=== PATIENT | female | born 1995 | race Two or more races ===

== ENCOUNTER 2023-03-08 23:04 | Emergency (ER) | payer MEDICAID, OTHER ==
[~2023-03-08] VITALS: Ht 165.1 cm; Wt 75.0 kg
[2023-03-08 23:45] LABS: Eosinophils # (auto) 0.2 10 ^3/uL (0-0.8); Hemoglobin 12.7 g/dL (12.2-16.2); Mean Corpuscular Hemoglobin 24.4 pg (28.0-32.0); Neutrophils # (auto) 5.5 10 ^3/uL (1.6-8.6); White Blood Cell 8.7 10^3/uL (4.4-10.8)
[2023-03-08 23:47] LABS: Basophils # (auto) 0 10 ^3/uL (0-0.2); Basophils % (auto) 0.5 % (0.0-2.0); Eosinophils % (auto) 2.5 % (0.0-7.0); Hematocrit 39.1 % (36.0-46.0); Lymphocytes # (auto) 2.3 10 ^3/uL (0.4-5.4); Lymphocytes % (auto) 26.8 % (10.0-50.0); Mean Corpuscular Hgb Conc. 32.5 g/dL (32.0-36.0); Mean Corpuscular Volume 75.1 fL (80.0-100.0); Monocytes # (auto) 0.6 10 ^3/uL (0-1.3); Monocytes % (auto) 6.9 % (0.0-12.0); Neutrophils % (auto) 63.3 % (37.0-80.0); Red Blood Cells 5.21 10^6/uL (4.0-5.20); Red Cell Distribution Width 15.8 % (11.8-14.3)
[2023-03-08 23:50] LABS: INR 1.01 (0.9-1.15); Partial Thromboplastin Time 28.5 SEC (24.5-34.5); Prothrombin Time 10.6 sec (9.3-11.8)
[2023-03-08 23:57] LABS: Calcium 9.2 mg/dL (8.7-10.4); Magnesium 2.4 mg/dL (1.6-2.6); Potassium 4.1 mmol/L (3.5-5.1)
[2023-03-09] LABS: BUN/Creatinine Ratio 17.6 (10.0-20.0); Total Protein 7.2 g/dL (6.4-8.2)
[2023-03-09 00:20] LABS: Urine Bacteria NONE SEEN /hpf (None Seen); Urine Blood Negative /uL (Negative); Urine Clarity HAZY (Clear); Urine Color Colorless (Yellow); Urine Mucus FEW (None Seen); Urine Protein, UAD Negative (Negative); Urine Specific Gravity 1.017 (1.001-1.035); Urine Urobilinogen Normal (Negative); Urine WBC 13 /hpf (0 - 5)
[2023-03-09] MEDS ORDERED: LORazepam 2MG/ML-1ML VIAL IM ONE (00:30)
[2023-03-09] MEDS ORDERED: HYDR-3682 PO ×2 (00:32→02:56)
[2023-03-09 00:45] LABS: Bilirubin, Total 0.2 mg/dL (0.2-1.0)
[2023-03-09 02:46] VITALS: BP 123/81; PULSE 80; RESP 14; TEMP 98.2; O2SAT 95
== END 2023-03-09 02:57 | disposition home or self-care (01) ==
LOC: ER 23:10
DX: R07.89 Other chest pain (principal); F41.9 Anxiety disorder, unspecified; Z79.899 Other long term (current) drug therapy
CPT/HCPCS: 36415; 71045; 80053; 81001; 83735; 83880; 84443; 84484; 85025; 85610; 85730; 93005; 96372; 99285; J2060

== ENCOUNTER 2023-05-12 21:14 | Emergency (ER) | payer SELFPAY ==
[~2023-05-12] VITALS: Ht 165.1 cm; Wt 74.0 kg
[2023-05-12 21:14] VITALS: TEMP 98.4
[~2023-05-12 21:14] MED LIST: HYDR-3682 PO
[2023-05-13] MEDS ORDERED: HYDROcodone-ACET 5/325MG TAB PO ONE (01:15)
[2023-05-13] MEDS ORDERED: LIDOCAINE 1% HCL (LOCAL ANESTH.) INJ 20ML MDV ID ONE (01:15)
[2023-05-13] MEDS ORDERED: NEOMYCIN-BACITRACIN-POLYM UNITDOSE PKG TOP OINT TOP ONE (01:15)
[2023-05-13] MEDS ORDERED: TETANUS-DIPTH-ACEL PERTUSSIS 0.5ML SYR Tdap IM ONE (01:15)
[2023-05-13 01:20] VITALS: BP 137/62; PULSE 90; RESP 19; O2SAT 99
[2023-05-13] MEDS ORDERED: MUPI2OIN2 EX (02:09)
[2023-05-13] MEDS ORDERED: HYDR-4902 PO (02:09)
[2023-05-13] MEDS ORDERED: CEPH500C PO (02:09)
== END 2023-05-13 02:37 | disposition home or self-care (01) ==
LOC: ER 21:14
DX: S61.012A Laceration without foreign body of left thumb without damage to nail, initial encounter (principal); S61.211A Laceration without foreign body of left index finger without damage to nail, initial encounter; Z79.1 Long term (current) use of non-steroidal anti-inflammatories (NSAID); Z79.899 Other long term (current) drug therapy; W26.0XXA Contact with knife, initial encounter; Y93.89 Activity, other specified; Y92.89 Other specified places as the place of occurrence of the external cause; Y99.8 Other external cause status
CPT/HCPCS: 12001; 90471; 90715; 99283; J2001